=== PATIENT | female | born 1980 | race Caucasian/White ===

== ENCOUNTER → 2016-10-04 | Outpatient (CLI) | payer MEDICAID ==
[~2016-10-04] VITALS: Ht 172.7 cm; Wt 63.1 kg
[~2016-10-04] MED LIST: BACTRIM DS 8001 TAB PO; BACTROBAN15 GM TOP; CEFTIN500 MG PO; CEPHALEXIN500 M1 PO; CLINDAMYCIN HC300 MG PO; CLINDAMYCIN300 MG PO; DEPO-PROVER150 MG/M1 IM; ESTRADERM0.1 MG/24 TD; IMPLANT FOR BC; LYRICA 50MG CAP50 MG PO; MACROBID 1100 MG/CAP PO; MOTRIN 600600 MG/TAB PO; NO HOME MEDICATIONS; NORCO 325 MG-51 TAB PO; PEPCID 20MG TAB20 MG PO; PLAQUENIL 200M200 MG PO; PREDNISONE20 MG PO
[2016-10-04 13:54] VITALS: BP 111/71; PULSE 101; TEMP 98.8
== END ==
LOC: EUO 13:30
DX: M32.8 Other forms of systemic lupus erythematosus (principal)
CPT/HCPCS: J0490; J7050

== ENCOUNTER → 2016-11-11 | Outpatient (CLI) | payer MEDICAID ==
[2016-11-11 11:25] VITALS: BP 108/67; PULSE 88; TEMP 98.2
== END ==
LOC: EUO 11-08 11:00
DX: M32.9 Systemic lupus erythematosus, unspecified (principal)
CPT/HCPCS: J0490; J7050

== ENCOUNTER → 2016-12-10 | Outpatient (CLI) | payer MEDICAID ==
[~2016-12-10] VITALS: Ht 172.7 cm; Wt 63.0 kg
[2016-12-10 11:25] VITALS: BP 116/84; PULSE 65; TEMP 98.1
== END ==
LOC: EUO 10:55
DX: M32.8 Other forms of systemic lupus erythematosus (principal)
CPT/HCPCS: J0490; J7050

== ENCOUNTER 2017-01-21 10:57 | Outpatient (CLI) | payer MEDICAID ==
[~2017-01-21] VITALS: Ht 172.7 cm; Wt 62.0 kg
[2017-01-21 11:40] VITALS: BP 123/80; PULSE 81; TEMP 98.3
== END 2017-01-21 14:34 | disposition home or self-care (01) ==
LOC: EUO 10:57
DX: M79.7 Fibromyalgia (principal); R53.83 Other fatigue; Z79.899 Other long term (current) drug therapy
CPT/HCPCS: J0490; J7050

== ENCOUNTER 2017-02-18 10:59 | Outpatient (CLI) | payer MEDICAID ==
[~2017-02-18] VITALS: Ht 172.7 cm; Wt 63.6 kg
[2017-02-18 12:01] VITALS: BP 109/60; PULSE 74; TEMP 98.9
== END 2017-02-18 13:37 | disposition home or self-care (01) ==
LOC: EUO 10:59
DX: M32.9 Systemic lupus erythematosus, unspecified (principal)
CPT/HCPCS: J0490; J7050

== ENCOUNTER 2017-03-26 11:31 | Outpatient (CLI) | payer MEDICAID ==
[~2017-03-26] VITALS: Ht 172.7 cm; Wt 61.0 kg
[2017-03-26 12:29] VITALS: BP 116/80; PULSE 86; TEMP 98.2
== END 2017-03-26 13:44 | disposition home or self-care (01) ==
LOC: EUO 11:31
DX: M32.9 Systemic lupus erythematosus, unspecified (principal); Z79.899 Other long term (current) drug therapy
CPT/HCPCS: J0490; J7050

== ENCOUNTER 2017-05-28 10:02 | Outpatient (CLI) | payer MEDICAID ==
[~2017-05-28] VITALS: Ht 172.7 cm; Wt 59.4 kg
[2017-05-28] MEDS ORDERED: ADVIL200 MG PO (10:15)
[2017-05-28 10:24] VITALS: BP 111/69; PULSE 78; TEMP 98.1
== END 2017-05-28 12:30 | disposition home or self-care (01) ==
LOC: EUO 10:02
DX: M32.9 Systemic lupus erythematosus, unspecified (principal); Z79.899 Other long term (current) drug therapy
CPT/HCPCS: J0490; J7050

== ENCOUNTER 2017-06-03 12:16 | Emergency (ER) | payer MEDICAID ==
[~2017-06-03] VITALS: Ht 172.7 cm; Wt 59.1 kg
[~2017-06-03 12:16] MED LIST changes: +ADVIL200 MG PO
[2017-06-03 12:18] VITALS: BP 125/74; TEMP 98
[2017-06-03] MEDS ORDERED: CEPHALEXIN500 M1 PO (12:21)
[2017-06-03 12:58] LABS: PH 6 (5-8); URINE APPEARANCE Hazy; URINE BACTERIA Rare /hpf; URINE BILIRUBIN Negative (NEGATIVE); URINE BLOOD 2+ (NEGATIVE); URINE COLOR Yellow; URINE GLUCOSE Negative (NEGATIVE); URINE KETONE Negative (NEGATIVE); URINE RBC 20-50 /hpf; URINE WBC >50 /hpf
[2017-06-03 14:11] LABS: ADJUSTED CALCIUM 8.9 mg/dL (8.4-10.2); ALANINE AMINOTRANSFERASE 29 U/L (9-52); ALBUMIN 4.2 gm/dL (3.5-5.0); ALKALINE PHOSPHATASE 65 U/L (50-136); ANION GAP 10 mmol/L (7-16); BILIRUBIN,TOTAL 0.7 mg/dL (0.0-1.0); BLOOD UREA NITROGEN 11 mg/dL (7-17); C-REACTIVE PROTEIN < 0.5 mg/dL (0.0-0.9); CALCIUM 9.1 mg/dL (8.4-10.2); CARBON DIOXIDE 25 mmol/L (22-30); CHLORIDE 103 mmol/L (98-107); CREATININE, serum 0.67 mg/dL (0.52-1.25); GLUCOSE 76 mg/dL (74-106); POTASSIUM 3.9 mmol/L (3.4-5.0); SODIUM 138 mmol/L (137-145)
[2017-06-03 14:46] LABS: BASO % 0.8 % (0.0-2.0); EOS # 0.1 (0.0-0.7); EOS % 2.8 % (0-4.0); GRAN # 1.7 (1.4-6.5); GRAN % 48.9 % (42.2-75.2); HEMATOCRIT 43.3 % (37.0-47.0); HEMOGLOBIN 13.8 g/dl (12.5-16.0); LYMPH # 1.3 (1.2-3.4); LYMPH % 37.4 % (20.0-51.0); MEAN CELL VOLUME 87 fl (80.0-100.0); MEAN CORPUSCULAR HEMOGLOBIN 28 pg (27.0-31.0); MEAN CORPUSCULAR HGB CONC 32 g/dl (33.0-37.0); MEAN PLATELET VOLUME 9.8 fl (7.4-10.4); MONO # 0.4 (0.1-0.6); MONO % 9.8 % (1.7-9.3); PLATELET COUNT 202 K/mm3 (130-400); RED BLOOD COUNT 4.97 M/mm3 (4.10-5.30); REDCELL DISTRIBUTION WIDTH-CV 13.2 % (11.5-14.5); WHITE BLOOD COUNT 3.6 K/mm3 (4.8-10.8)
[2017-06-03] MEDS ORDERED: NORCO 325 MG-7.1 TAB PO (15:19)
[2017-06-03] MEDS ORDERED: CIPRO 500MG TA500 MG PO (15:19)
[2017-06-03 15:25] VITALS: PULSE 66
== END 2017-06-03 15:26 | disposition home or self-care (01) ==
LOC: COL.ER 12:16
PROVIDERS: Nurse Practitioner
DX: N12 Tubulo-interstitial nephritis, not specified as acute or chronic (principal); M32.9 Systemic lupus erythematosus, unspecified; F17.210 Nicotine dependence, cigarettes, uncomplicated
CPT/HCPCS: J1885; J7030

== ENCOUNTER 2017-07-02 10:57 | Outpatient (CLI) | payer MEDICAID ==
[~2017-07-02] VITALS: Ht 172.7 cm; Wt 68.7 kg
[~2017-07-02 10:57] MED LIST changes: +CIPRO 500MG TA500 MG PO; +NORCO 325 MG-7.1 TAB PO
[2017-07-02 11:22] VITALS: BP 117/66; PULSE 64; TEMP 97.8
== END 2017-07-02 17:27 | disposition home or self-care (01) ==
LOC: EUO 10:57
DX: M32.9 Systemic lupus erythematosus, unspecified (principal); Z79.899 Other long term (current) drug therapy
CPT/HCPCS: J0490; J7050

== ENCOUNTER → 2017-08-12 | Outpatient (CLI) | payer MEDICAID ==
[~2017-08-12] VITALS: Ht 172.7 cm; Wt 56.8 kg
[2017-08-12 11:30] VITALS: BP 115/76; PULSE 77
== END ==
LOC: EUO 11:00
DX: M32.9 Systemic lupus erythematosus, unspecified (principal)
CPT/HCPCS: J0490; J7050

== ENCOUNTER 2017-09-16 10:51 | Outpatient (CLI) | payer MEDICAID ==
[~2017-09-16] VITALS: Ht 172.7 cm; Wt 55.0 kg
[2017-09-16 11:05] VITALS: BP 100/73; PULSE 73; TEMP 97.7
== END 2017-09-16 12:44 | disposition home or self-care (01) ==
LOC: EUO 10:51
DX: M32.9 Systemic lupus erythematosus, unspecified (principal)
CPT/HCPCS: J0490; J7050

== ENCOUNTER 2017-10-14 11:04 | Outpatient (CLI) | payer MEDICAID ==
[~2017-10-14] VITALS: Ht 172.7 cm; Wt 52.0 kg
[2017-10-14 12:40] VITALS: BP 101/70; PULSE 75; TEMP 98.4
[2017-10-14] MEDS ORDERED: DEPO-PROVE150 MG/1 M IM (12:41)
== END 2017-10-14 13:48 | disposition home or self-care (01) ==
LOC: EUO 11:04
DX: M32.19 Other organ or system involvement in systemic lupus erythematosus (principal); Z79.899 Other long term (current) drug therapy
CPT/HCPCS: J0490; J7050

== ENCOUNTER 2017-12-09 10:55 | Outpatient (CLI) | payer MEDICAID ==
[~2017-12-09] VITALS: Ht 172.7 cm; Wt 53.1 kg
[~2017-12-09 10:55] MED LIST changes: +DEPO-PROVE150 MG/1 M IM
[2017-12-09 12:36] VITALS: BP 113/78; PULSE 70; TEMP 98.5
== END 2017-12-09 14:02 | disposition home or self-care (01) ==
LOC: EUO 10:55
DX: M32.19 Other organ or system involvement in systemic lupus erythematosus (principal); Z79.899 Other long term (current) drug therapy
CPT/HCPCS: J0490; J7050

== ENCOUNTER 2017-12-15 12:09 | Emergency (ER) | payer MEDICAID ==
[~2017-12-15] VITALS: Wt 53.2 kg
[2017-12-15 12:21] VITALS: TEMP 98.6
[2017-12-15 13:21] LABS: COLLECTION METHOD CLEAN CATCH
[2017-12-15 13:29] LABS: PH 6 (5-8); SQUAMOUS EPITHELIAL 0-2 /hpf; URINE APPEARANCE Clear; URINE BACTERIA Rare /hpf; URINE BILIRUBIN Negative (NEGATIVE); URINE BLOOD 2+ (NEGATIVE); URINE COLOR Yellow; URINE GLUCOSE Negative (NEGATIVE); URINE KETONE Negative (NEGATIVE); URINE LEUKOCYTE ESTERASE Trace (NEGATIVE); URINE NITRATE Negative (NEGATIVE); URINE PROTEIN(semi-quant) Negative (NEGATIVE); URINE RBC 0-2 /hpf; URINE UROBILINOGEN Negative (NEGATIVE)
[2017-12-15 14:11] LABS: BASO % 0.7 % (0.0-2.0); EOS # 0.1 (0.0-0.7); EOS % 1.3 % (0-4.0); GRAN # 2.3 (1.4-6.5); GRAN % 49.3 % (42.2-75.2); HEMATOCRIT 41.2 % (37.0-47.0); HEMOGLOBIN 13.4 g/dl (12.5-16.0); LYMPH # 1.9 (1.2-3.4); MEAN CELL VOLUME 85 fl (80.0-100.0); MEAN CORPUSCULAR HEMOGLOBIN 28 pg (27.0-31.0); MEAN CORPUSCULAR HGB CONC 33 g/dl (33.0-37.0); MEAN PLATELET VOLUME 9.9 fl (7.4-10.4); MONO # 0.3 (0.1-0.6); MONO % 6.5 % (1.7-9.3); PLATELET COUNT 195 K/mm3 (130-400); RED BLOOD COUNT 4.83 M/mm3 (4.10-5.30); REDCELL DISTRIBUTION WIDTH-CV 13.6 % (11.5-14.5)
[2017-12-15 14:29] LABS: ALANINE AMINOTRANSFERASE 25 U/L (9-52); ALBUMIN 3.9 gm/dL (3.5-5.0); ALKALINE PHOSPHATASE 63 U/L (50-136); ANION GAP 11 mmol/L (7-16); AST,SGOT 19 U/L (15-37); BILIRUBIN,TOTAL 0.3 mg/dL (0.0-1.0); BLOOD UREA NITROGEN 12 mg/dL (7-17); CARBON DIOXIDE 26 mmol/L (22-30); CHLORIDE 105 mmol/L (98-107); CREATININE, serum 0.75 mg/dL (0.52-1.25); GLUCOSE 88 mg/dL (74-106); POTASSIUM 3.9 mmol/L (3.4-5.0); SODIUM 142 mmol/L (137-145); TOTAL PROTEIN 7.2 gm/dL (6.4-8.2)
[2017-12-15 14:30] LABS: C-REACTIVE PROTEIN < 0.5 mg/dL (0.0-0.9)
[2017-12-15 16:54] VITALS: BP 115/89; PULSE 89
== END 2017-12-15 16:55 | disposition home or self-care (01) ==
LOC: COL.ER 12:09
PROVIDERS: Emergency Medicine; Nurse Practitioner
DX: M54.5 Low back pain (principal); F17.210 Nicotine dependence, cigarettes, uncomplicated; M79.7 Fibromyalgia
CPT/HCPCS: J0696; J2270; J2405; J7030

== ENCOUNTER 2018-01-06 11:15 | Outpatient (CLI) | payer MEDICAID ==
[~2018-01-06] VITALS: Wt 47.8 kg
[2018-01-06 11:47] VITALS: BP 120/82; PULSE 101; TEMP 98
== END 2018-01-06 13:30 | disposition home or self-care (01) ==
LOC: EUO 11:15
DX: M32.19 Other organ or system involvement in systemic lupus erythematosus (principal); Z79.899 Other long term (current) drug therapy
CPT/HCPCS: J0490; J7050

== ENCOUNTER 2018-02-12 11:00 | Outpatient (CLI) | payer MEDICAID ==
[~2018-02-12] VITALS: Ht 152.4 cm; Wt 52.3 kg
[2018-02-12 11:42] VITALS: BP 112/64; PULSE 66; TEMP 98
== END 2018-02-12 13:23 | disposition home or self-care (01) ==
LOC: EUO 11:00
DX: M32.19 Other organ or system involvement in systemic lupus erythematosus (principal); Z79.899 Other long term (current) drug therapy
CPT/HCPCS: J0490; J7050

== ENCOUNTER 2018-03-25 10:32 | Outpatient (CLI) | payer MEDICAID ==
[~2018-03-25] VITALS: Ht 152.4 cm; Wt 55.5 kg
[2018-03-25 11:16] VITALS: BP 102/59; PULSE 72; TEMP 98
== END 2018-03-25 13:00 | disposition home or self-care (01) ==
LOC: EUO 10:32
DX: M32.19 Other organ or system involvement in systemic lupus erythematosus (principal)
CPT/HCPCS: J0490; J7050

== ENCOUNTER 2018-04-22 11:13 | Outpatient (CLI) | payer MEDICAID ==
[~2018-04-22] VITALS: Ht 152.4 cm; Wt 46.4 kg
[2018-04-22 11:56] VITALS: BP 115/84; PULSE 50; TEMP 97.2
== END 2018-04-22 13:15 | disposition home or self-care (01) ==
LOC: EUO 11:13
DX: M32.19 Other organ or system involvement in systemic lupus erythematosus (principal); Z79.899 Other long term (current) drug therapy
CPT/HCPCS: J0490; J7050

== ENCOUNTER 2018-05-27 11:04 | Outpatient (CLI) | payer MEDICAID ==
[~2018-05-27] VITALS: Ht 152.4 cm; Wt 57.8 kg
[2018-05-27] MEDS ORDERED: CALCIUM 600MG+D1 TAB PO (11:53)
[2018-05-27 12:16] VITALS: BP 112/77; PULSE 81; TEMP 97.7
== END 2018-05-27 13:26 | disposition home or self-care (01) ==
LOC: EUO 11:04
DX: M32.19 Other organ or system involvement in systemic lupus erythematosus (principal); Z79.899 Other long term (current) drug therapy
CPT/HCPCS: J0490; J7050

== ENCOUNTER 2018-06-24 11:04 | Outpatient (CLI) | payer MEDICAID ==
[~2018-06-24] VITALS: Wt 57.7 kg
[~2018-06-24 11:04] MED LIST changes: +CALCIUM 600MG+D1 TAB PO
[2018-06-24 12:00] VITALS: BP 100/58; PULSE 90; TEMP 98.2
== END 2018-06-24 13:37 | disposition home or self-care (01) ==
LOC: EUO 11:04
DX: M32.10 Systemic lupus erythematosus, organ or system involvement unspecified (principal)
CPT/HCPCS: J0490; J7050

== ENCOUNTER 2018-07-22 12:59 | Outpatient (CLI) | payer MEDICAID ==
[~2018-07-22] VITALS: Ht 172.7 cm; Wt 58.0 kg
[2018-07-22 13:52] VITALS: BP 99/56; PULSE 96; TEMP 98.5
== END 2018-07-22 14:51 | disposition home or self-care (01) ==
LOC: EUO 12:59
DX: M32.9 Systemic lupus erythematosus, unspecified (principal)
CPT/HCPCS: J0490; J7050

== ENCOUNTER 2018-08-20 14:06 | Outpatient (CLI) | payer MEDICAID ==
[~2018-08-20] VITALS: Ht 172.7 cm; Wt 59.1 kg
[2018-08-20 16:23] VITALS: BP 109/71; PULSE 91; TEMP 98.4
== END 2018-08-20 18:30 | disposition home or self-care (01) ==
LOC: EUO 14:06
DX: Z79.899 Other long term (current) drug therapy (principal)
CPT/HCPCS: J0490; J7050

== ENCOUNTER 2018-09-07 09:18 | Observation (INO) | payer MEDICAID ==
[~2018-09-07] VITALS: Ht 172.7 cm; Wt 57.1 kg
[2018-09-17] MEDS ORDERED: DOXYCYCLINE 10100 MG PO (15:38)
[2018-09-28] MEDS ORDERED: CLEOCIN HC150 MG/CAP PO (01:32)
[2018-10-01] VITALS (22 sets, daily range): BP systolic 104–135; BP diastolic 67–98; PULSE 50–93; TEMP 97.3–98.2
[2018-10-01] MEDS ORDERED: BENLYSTA120 MG IV (06:48)
--- NOTE | 2018-10-01 08:10 | NUR ---
pt doing well. some slight movement with with insertion of guide wire.
--- NOTE | 2018-10-01 08:15 | NUR ---
PT DID WELL. SOME PAIN SO WILL GIVE MEDS 0819VERSED 0.5 MG AND 25 MCG FEBTANYL GIVEN
--- NOTE | 2018-10-01 08:20 | NUR ---
PT STATES NO PAIN. VSS
--- NOTE | 2018-10-01 08:25 | NUR ---
PT DOING WELL VSS.
--- NOTE | 2018-10-01 08:30 | NUR ---
PT IS DOING WELL. VSS. VSS.
--- NOTE | 2018-10-01 08:40 | NUR ---
PT IS HAVING A LITTLE PAIN WILLL GIVE MEDS. VSS. TOLERATING WELL
--- NOTE | 2018-10-01 08:45 | NUR ---
PT IS DOING WELL. WILL GIVE MEDS 0848VERSED 0.5 MG AND FENTANYL 25 MCG
--- NOTE | 2018-10-01 08:50 | NUR ---
PROCEDURE IS COMPLETED. SITE IS SECURED WITH TEGADERM. [place] [facility] [place] GIVEN TO NIURKA DE LA GARZA.
--- NOTE | 2018-10-01 08:58 | NUR ---
Patient taken to radiology per cart for guidewire placement. Friend has left and will return later.
--- NOTE | 2018-10-01 09:02 | NUR ---
Patient returns from radiology per cart and is awake and alert. Guidewire noted on left side with large tedagerm dressing in place. No bleeding or drainage noted. Patient is laying prone and call light in reach. Room air sats 99%. Lights dimmed and allowed to sleep.
--- NOTE | 2018-10-01 09:21 | NUR ---
PT TRANSFERED TO TABLE PER SELF. INT PATENT WITH NS INFUSING. PLACED MONITORING EQUIPMENT ON PT. VSS. SCANNING DONE
--- NOTE | 2018-10-01 09:45 | NUR ---
Patient assisted up to the bedside commode and voids 100cc's blood tinged urine and returns to cart. States that she is having bladder discomfort. Will obtain pain medication for patient.
--- NOTE | 2018-10-01 10:11 | NUR ---
Morphine 3mg IV given as ordered by Dr. Bravo for bladder discomfort.
--- NOTE | 2018-10-01 10:26 | NUR ---
PT TOLERATING WELL. VSS. REPORTS NO PAIN
--- NOTE | 2018-10-01 10:50 | NUR ---
Has been getting up and down to the bedside commode and voiding scant amounts of pink-tinged urine. Levsin 0.125mg SL for continued bladder discomfort.
--- NOTE | 2018-10-01 11:39 | NUR ---
Tegaderm reinforced. Having pink tinged drainage from guide wire insertion site. Patient has continued to transfer self from cart to BSC. Encouraged to rest if possible instead of sitting on commode. Will repeat Morphine as needed.
--- NOTE | 2018-10-01 13:06 | NUR ---
Has continued to up to BSC and states that it feels better sitting up. Has been alternating sitting and laying. Dr. Bravo to talk with the patient and family and all questions answered.
--- NOTE | 2018-10-01 16:40 | NUR ---
PATIENT ADMITED INTO ROOM 349 POST OP. A&O. PATIENT IS A LITTLE EMOTIONAL POST OP. NO C/O PAIN. NOTED DIASTOLIC B/P IN THE 90'S. PACU REPORTED SAME DIASTOLIC. ALL OTHER VSS. LEFT NEPH TUBE TO DEPENDENT DRAINAGE WITH SCANT AMOUNTS OF BLOODY DRAINAGE. WRIGHT TO DEPENDENT DRAINAGE WITH PINK URINE NOTED. IV FLUIDS INFUSING INTO LEFT HAND. HEAD TO TOE ASSESSMENT COMPLETE. FAMILY AT BEDSIDE. CALL LIGHT IN REACH.
--- NOTE | 2018-10-01 20:30 | NUR ---
Patient asking for pain medication. Rating pain to left flank 7/10, especially with movement. Patient is alert and oriented. Has eaten evening meal without nausea. Medicated with Tramadol 100mg po now. Has IV to left hand with fluids infusing at 100cc/hr, no redness or swelling noted. Has left nephrostomy tube with bloody urine, has indwelling [place] with pink tinged urine. Dressing to left back covering nephrostomy tube is dry/intact.
--- NOTE | 2018-10-01 22:30 | NUR ---
Patient still reporting incisional pain to left flank. Medicated with Oxycodone 5mg now. Patient assisted to bedside where she sits with friend. She stands at bedside and repositions self back in the bed.
--- NOTE | 2018-10-02 00:30 | NUR ---
Patient resting quietly after Oxycodone.
[2018-10-02 03:16] VITALS: BP 96/53; PULSE 75; TEMP 98.8
[2018-10-02 06:54] LABS: BASO % 0.3 % (0.0-2.0); EOS % 0.1 % (0-4.0); GRAN # 7.8 (1.4-6.5); HEMOGLOBIN 11.4 g/dl (12.5-16.0); LYMPH # 0.9 (1.2-3.4); LYMPH % 9.5 % (20.0-51.0); MEAN CELL VOLUME 87 fl (80.0-100.0); MEAN CORPUSCULAR HEMOGLOBIN 28 pg (27.0-31.0); MEAN CORPUSCULAR HGB CONC 32 g/dl (33.0-37.0); MEAN PLATELET VOLUME 9.9 fl (7.4-10.4); MONO # 0.7 (0.1-0.6); MONO % 6.9 % (1.7-9.3); PLATELET COUNT 185 K/mm3 (130-400); RED BLOOD COUNT 4.09 M/mm3 (4.10-5.30); REDCELL DISTRIBUTION WIDTH-CV 13.1 % (11.5-14.5)
[2018-10-02 06:57] LABS: HEMATOCRIT 35.7 % (37.0-47.0)
[2018-10-02 07:06] LABS: CALCIUM 8.7 mg/dL (8.4-10.2); CREATININE, serum 0.78 mg/dL (0.52-1.25); POTASSIUM 4.5 mmol/L (3.4-5.0)
[2018-10-02 08:54] VITALS: BP 107/61; PULSE 78; TEMP 98.5
--- NOTE | 2018-10-02 10:17 | NUR ---
Initial visit; Patient thanked Manager [employer] for looking in on her and offering God's blessings.
[2018-10-02 12:55] VITALS: BP 110/68; PULSE 78; TEMP 98.1
--- NOTE | 2018-10-02 15:49 | NUR ---
SW and SW student met with patient to discuss discharge planning. Patient lives in [place] with Deondre ([phone]) who she would like to be her emergency contact. Patients PCP is Dr Gilda Brothers and she obtains her medications from [facility]. Patient does not have a DPOA and was not interested in completing one. There are no anticipated dc needs at this time.
[2018-10-02 16:04] VITALS: BP 115/73; PULSE 78; TEMP 98
--- NOTE | 2018-10-02 18:00 | NUR ---
Patient has been doing well today. Pain has been better since her drain was removed. She has been up moving in the room. She walked in the [place] twice. Reminded her to walk in the halls a couple more times this evening. No other changes at this time. Call light within reach.
[2018-10-02 19:46] VITALS: BP 134/77; PULSE 61; TEMP 98.2
--- NOTE | 2018-10-02 20:00 | NUR ---
Patient resting in bed watching television at this time. Patient is alert and oriented, answers questions appropriately. Gauze dressing over nephrostomy tube on left lower back is in place, appears CDI. Fluid intake encouraged as urine output has been low. Patient denies further needs at this time, call light within reach.
[2018-10-03 03:22] VITALS: BP 122/72; PULSE 83; TEMP 98.5
--- NOTE | 2018-10-03 06:04 | NUR ---
Patient rested well overnight. Gauze dressing to nephrostomy removal site is CDI. Patient denies pain or needs, call light within reach.
[2018-10-03 09:24] VITALS: BP 115/72; PULSE 80; TEMP 97.7
[2018-10-03] MEDS ORDERED: SENOKOT S 50 MG1 TAB PO (09:50)
[2018-10-03] MEDS ORDERED: PERCOCET 325 MG1 TA2 PO (09:50)
[2018-10-03] MEDS ORDERED: PYRIDIUM 100MG100 MG PO (09:52)
--- NOTE | 2018-10-03 11:30 | NUR ---
Patient is discharging home. Explained she has to take her script to get pain medications. INT discontinued. Changed dressing to prior neph tube site before discharge. Explained when her follow up appointment is. Copies of discharge instructions sent with patient. All belongings packed up and sent with her. Patient walked out with this nurse.
== END 2018-10-03 11:30 | disposition home or self-care (01) ==
LOC: INPTSU 10-01 05:59 → SURG 10-01 08:00 → INPTSU 10-01 16:10 → SURG 10-01 16:53
PROVIDERS: ADMIT Urology
DX: N20.0 Calculus of kidney (principal); Z87.440 Personal history of urinary (tract) infections
CPT/HCPCS: A4314; A9284; C1726; C1758; C1769; C2617; G0378; G0379; J0690; J1100; J1580; J1885; J2250; J2270; J2405; J2704; J3010; J7120; Q9967

== ENCOUNTER 2018-09-17 13:52 | Outpatient (CLI) | payer MEDICAID ==
[~2018-09-17] VITALS: Wt 58.3 kg
[2018-09-17 15:35] VITALS: BP 119/78; PULSE 93; TEMP 98.5
[2018-09-17] MEDS ORDERED: DOXYCYCLINE 10100 MG PO (15:38)
== END 2018-09-17 17:00 | disposition home or self-care (01) ==
LOC: EUO 13:52
DX: M32.19 Other organ or system involvement in systemic lupus erythematosus (principal); Z79.899 Other long term (current) drug therapy
CPT/HCPCS: J0490; J7050

== ENCOUNTER 2018-09-27 23:34 | Emergency (ER) | payer MEDICAID ==
[~2018-09-27] VITALS: Ht 172.7 cm; Wt 56.8 kg
[~2018-09-27 23:34] MED LIST changes: +DOXYCYCLINE 10100 MG PO
[2018-09-28] VITALS: BP 129/90; TEMP 98.8
[2018-09-28] MEDS ORDERED: CLEOCIN HC150 MG/CAP PO (01:32)
[2018-09-28 01:43] VITALS: PULSE 100
== END 2018-09-28 01:44 | disposition home or self-care (01) ==
LOC: COL.ER 23:34
DX: K08.89 Other specified disorders of teeth and supporting structures (principal)

== ENCOUNTER 2018-10-15 14:37 | Outpatient (CLI) | payer MEDICAID ==
[~2018-10-15 14:37] MED LIST changes: +BENLYSTA120 MG IV; +CLEOCIN HC150 MG/CAP PO; +PERCOCET 325 MG1 TA2 PO; +PYRIDIUM 100MG100 MG PO; +SENOKOT S 50 MG1 TAB PO
[2018-10-15 15:30] VITALS: BP 102/64; PULSE 76; TEMP 98.1
== END 2018-10-15 16:50 | disposition home health service (06) ==
LOC: EUO 14:37
DX: M32.19 Other organ or system involvement in systemic lupus erythematosus (principal); Z79.899 Other long term (current) drug therapy
CPT/HCPCS: J0490; J7050

== ENCOUNTER → 2018-11-12 | Outpatient (CLI) | payer MEDICAID | LOC: COL.RAD 10:30 | DX: N13.2 Hydronephrosis with renal and ureteral calculous obstruction (principal) ==

== ENCOUNTER 2018-11-16 11:36 | Outpatient (CLI) | payer MEDICAID ==
[~2018-11-16] VITALS: Ht 172.7 cm; Wt 55.8 kg
[2018-11-16 11:49] VITALS: BP 114/80; PULSE 88; TEMP 97.9
== END 2018-11-16 14:37 | disposition home or self-care (01) ==
LOC: EUO 11:36
DX: M32.19 Other organ or system involvement in systemic lupus erythematosus (principal); Z79.899 Other long term (current) drug therapy
CPT/HCPCS: J0490; J7050

== ENCOUNTER 2018-12-14 14:28 | Outpatient (CLI) | payer MEDICAID ==
[~2018-12-14] VITALS: Ht 172.7 cm; Wt 55.0 kg
[2018-12-14 15:55] VITALS: BP 108/64; PULSE 98; TEMP 98.9
== END 2018-12-14 19:00 | disposition home or self-care (01) ==
LOC: EUO 14:28
DX: M32.19 Other organ or system involvement in systemic lupus erythematosus (principal); Z79.899 Other long term (current) drug therapy
CPT/HCPCS: J0490; J7050

== ENCOUNTER 2019-01-11 14:30 | Outpatient (CLI) | payer MEDICAID ==
[~2019-01-11] VITALS: Ht 172.7 cm; Wt 56.2 kg
[2019-01-11 15:39] VITALS: BP 110/76; PULSE 74; TEMP 98.9
== END 2019-01-11 16:45 | disposition home or self-care (01) ==
LOC: EUO 14:30
DX: M32.19 Other organ or system involvement in systemic lupus erythematosus (principal); Z79.899 Other long term (current) drug therapy
CPT/HCPCS: J0490; J7050

== ENCOUNTER → 2019-01-19 | Outpatient (CLI) | payer MEDICAID | LOC: COL.RAD 12:17 | DX: N13.30 Unspecified hydronephrosis (principal); Z96.0 Presence of urogenital implants | CPT/HCPCS: A9562 ==

== ENCOUNTER 2019-03-08 13:00 | Outpatient (RCR) | payer MEDICAID ==
[~2019-03-08] VITALS: Ht 172.7 cm; Wt 54.0 kg
[2019-03-08 13:39] VITALS: BP 97/63; PULSE 75; TEMP 98
== END 2019-03-08 16:00 | disposition home or self-care (01) ==
LOC: EUO 13:00
DX: M32.19 Other organ or system involvement in systemic lupus erythematosus (principal); Z79.899 Other long term (current) drug therapy
CPT/HCPCS: J0490; J7050

== ENCOUNTER 2019-04-05 14:00 | Outpatient (CLI) | payer MEDICAID ==
[~2019-04-05] VITALS: Ht 172.7 cm; Wt 54.4 kg
[2019-04-05 15:30] VITALS: BP 103/68; PULSE 86; TEMP 98.6
== END 2019-04-05 18:00 | disposition home or self-care (01) ==
LOC: EUO 14:00
DX: M32.19 Other organ or system involvement in systemic lupus erythematosus (principal); Z79.899 Other long term (current) drug therapy
CPT/HCPCS: J0490; J7050

== ENCOUNTER 2019-05-26 09:54 | Outpatient (CLI) | payer MEDICAID ==
[~2019-05-26] VITALS: Ht 172.7 cm; Wt 60.7 kg
[2019-05-26 11:07] VITALS: BP 109/66; PULSE 79; TEMP 98.5
[2019-05-26] MEDS ORDERED: VITAMIN D 400400 IU PO (11:42)
[2019-05-26] MEDS ORDERED: CALCIUM CARBON650 M2 PO (11:42)
== END 2019-05-26 12:25 | disposition home or self-care (01) ==
LOC: EUO 09:54
DX: M32.19 Other organ or system involvement in systemic lupus erythematosus (principal); Z79.899 Other long term (current) drug therapy
CPT/HCPCS: J0490; J7050

== ENCOUNTER 2019-06-23 14:09 | Outpatient (CLI) | payer MEDICAID ==
[~2019-06-23] VITALS: Ht 172.7 cm; Wt 61.2 kg
[~2019-06-23 14:09] MED LIST changes: +CALCIUM CARBON650 M2 PO; +VITAMIN D 400400 IU PO
[2019-06-23 15:36] VITALS: BP 118/77; PULSE 80; TEMP 98.5
== END 2019-06-23 16:43 | disposition home or self-care (01) ==
LOC: EUO 14:09
DX: M32.19 Other organ or system involvement in systemic lupus erythematosus (principal)
CPT/HCPCS: J0490; J7050

== ENCOUNTER → 2019-11-02 | Outpatient (CLI) | payer OTHER | LOC: COL.RAD 09:26 | DX: Z02.71 Encounter for disability determination (principal); M54.9 Dorsalgia, unspecified ==

== ENCOUNTER → 2020-04-03 | Outpatient (CLI) | payer MEDICAID | LOC: COL.RAD 09:47 | DX: R10.11 Right upper quadrant pain (principal) | CPT/HCPCS: A9537; J2805 ==

== ENCOUNTER 2021-07-06 23:42 | Emergency (ER) | payer MEDICAID ==
[~2021-07-06] VITALS: Ht 172.7 cm; Wt 63.6 kg
[2021-07-06 23:50] VITALS: TEMP 98
[2021-07-07 00:29] LABS: INR 1.1 (0.8-3.0); PROTHROMBIN TIME 12.6 SECONDS (9.7-12.8)
[2021-07-07 00:38] LABS: ALBUMIN 4.1 gm/dL (3.5-5.0); BILIRUBIN,TOTAL 0.5 mg/dL (0.2-1.2); CALCIUM 9.3 mg/dL (8.4-10.2); CREATININE, serum 0.79 mg/dL (0.57-1.11); POTASSIUM 3.7 mmol/L (3.5-4.5); TOTAL PROTEIN 7.1 gm/dL (6.2-8.1)
[2021-07-07 00:42] LABS: BASO % 0.4 % (0.0-2.0); EOS % 0.2 % (0-4.0); GRAN # 9.3 K/mm3 (1.4-6.5); GRAN % 84.2 % (42.2-75.2); HEMATOCRIT 41.8 % (37.0-47.0); HEMOGLOBIN 13.7 g/dl (12.5-16.0); LYMPH # 1.1 K/mm3 (1.2-3.4); LYMPH % 9.9 % (20.0-51.0); MEAN CELL VOLUME 87 fl (80.0-100.0); MEAN CORPUSCULAR HEMOGLOBIN 28 pg (27.0-31.0); MEAN CORPUSCULAR HGB CONC 33 g/dl (33.0-37.0); MEAN PLATELET VOLUME 9.9 fl (7.4-10.4); MONO # 0.5 K/mm3 (0.1-0.6); MONO % 4.9 % (1.7-9.3); PLATELET COUNT 199 K/mm3 (130-400); RED BLOOD COUNT 4.83 M/mm3 (4.10-5.30); REDCELL DISTRIBUTION WIDTH-CV 12.9 % (11.5-14.5)
[2021-07-07 08:25] VITALS: BP 112/79; PULSE 83
== END 2021-07-07 07:50 | disposition short-term general hospital (02) ==
LOC: COL.ER 23:42
PROVIDERS: Personal Emergency Response Attendant
DX: S72.002A Fracture of unspecified part of neck of left femur, initial encounter for closed fracture (principal); M35.00 Sjogren syndrome, unspecified; M32.9 Systemic lupus erythematosus, unspecified; Z20.822 Contact with and (suspected) exposure to COVID-19; Z79.899 Other long term (current) drug therapy; V00.121A Fall from non-in-line roller-skates, initial encounter; Y93.51 Activity, roller skating (inline) and skateboarding
CPT/HCPCS: J1170; J2270; J2405

== ENCOUNTER → 2022-04-24 | Outpatient (CLI) | payer MEDICAID | LOC: MC.RAD 14:00 | DX: N63.22 Unspecified lump in the left breast, upper inner quadrant (principal) ==